=== PATIENT | male | born 1965 | race Caucasian/White ===

== ENCOUNTER 2016-12-23 17:10 | Emergency (ER) | payer OTHER ==
[~2016-12-23] VITALS: Ht 175.3 cm; Wt 137.0 kg
--- OUTSIDE RECORDS SUMMARY | 2016-12-23 17:18 | XMS REPORT ---
Author Author FRANCESCA GONZALES Organization [employer] Address Unknown Phone Unavailable Care Team Providers Care Casting And Curing Operator Name Role Phone FRANCESCA GONZALES CP Unavailable Allergies, Adverse Reactions, Alerts Substance Reaction Event Type N.K.D.A. Info Not Available Non Drug Allergy Problems Problem Type Condition Code Onset Dates Condition Status Assessment Dental caries K02.9 Active Assessment Encounter for dental examination Z01.20 Active Medications Medication Code System Code Instructions Start Date End Date Status Dosage Lisinopril [facility] [address]-77 20 MG Orally Once a day 1 tablet Doxepin HCl [facility] [address]-38 not defined Triamterene-HCTZ [facility] [address]-92 75-50 MG Orally Once a day 1 tablet in the morning Aspir-[address] [facility] [address]-11 81 MG Orally Once a day 1 tablet B-[address] [facility] [address] not defined Delilah-C [facility] [address] not defined Fish Oil [facility] [address]-65 not defined Metformin HCl [facility] [address]-76 not defined Oxycodone HCl [facility] [address]-80 not defined Procedures Procedure Coding System Code Date INTRAORL-PERIAPICAL 1 FILM 17797 CPT-4 D0220 Mar 23, 2015 BITEWING - SINGLE FILM CPT-4 D0270 Mar 23, 2015 LTD ORAL EVALUATION - PROBLEM FOCUS CPT-4 D0140 Mar 23, 2015 EXTRAC ERUPTED TOOTH/EXPOSED ROOT CPT-4 D7140 Mar 23, 2015 Vital Signs Date/Time: Mar 23, 2015 Blood Pressure Diastolic 84 mmHg Blood Pressure Systolic 142 mmHg Results No Known Results Summary Purpose [employer] Submission
[2016-12-23] MEDS ORDERED: LISI-552 (18:23)
[2016-12-23] MEDS ORDERED: TRIA1TAB5 (18:23)
[2016-12-23] MEDS ORDERED: OXYC15TA79 (18:23)
[2016-12-23] MEDS ORDERED: ASPI-586 PO (18:23)
[2016-12-23] MEDS ORDERED: LINA5TAB (18:23)
[2016-12-23] MEDS ORDERED: DULA0.75 (18:25)
[2016-12-23] MEDS ORDERED: GLYB5TAB6 (18:25)
[2016-12-23] MEDS ORDERED: inSUlin (REGULAR) HUMAN 1 UNIT/0.01 ML (CHARGE PER UNIT) SC STA (18:53)
[2016-12-23] MEDS ORDERED: predniSONE 20 MG TAB PO ONE (19:00)
--- NOTE | 2016-12-23 19:02 | ED General ---
General Chief Complaint: General Problems/Pain Stated Complaint: IRREGULAR LAB RESULTS Nursing Triage Note: WAS TOLD TO COME TO ER FOR LOW PLT COUNT. Nursing Sepsis Screen: No Definite Risk Source of Information: Patient Exam Limitations: No Limitations History of Present Illness Time Seen by Provider: 18:00 Initial Comments Here with report of low platelet count. Apparently he had normal labs drawn this morning for . visit later this week. He is called by the nurse for the physician and they were very concerned because his platelets were abnormally low. They directed him for repeat blood test. This was done here and results noted. His platelet count was 9 but his other lab looked okay apparently his doctor's nurse called and then told him to come directly to the ER for further evaluation. Here he reports it is not in any significant pain. He does admit that he's had easy bruising over the last couple weeks. He states this started after he was taken off metformin and started on new injectable diabetes agents that are not insulin. Denies any recent fever or chills. Denies other injury or concerns. Does report taking aspirin. Denies blood in his urine or stool. Denies any vomiting of blood. Notes little red spots on his legs recently. Timing/Duration: 12-24 Hours Severity: Mild Associated Systoms: No Chest Pain, No Cough, No Fever/Chills, No Headaches, No Nausea/Vomiting, No Shortness of Air, No Weakness Allergies and Home Medications Allergies Coded Allergies: No Known Drug Allergies (Unverified , 12/23/16) Home Medications Aspirin 81 Mg Tablet.dr, 81 MG PO, (Reported) Dulaglutide 0.75 Mg/0.5 Ml Pen.injctr, (Reported) Glyburide 5 Mg Tablet, (Reported) Insulin Regular, Human 500 Unit/1 Ml Insuln.pen, 10 UNIT SQ UD, #1 Ref 2 Sliding-scale insulin per chart before meals and at bedtime Prescribed by: DEBBI JHAVERI on 12/23/161905 Linagliptin 5 Mg Tablet, (Reported) Lisinopril 20 Mg Tablet, (Reported) Oxycodone HCl 15 Mg Tablet, (Reported) Prednisone 20 Mg Tab, 80 MG PO DAILY, #80 Ref 0 Prescribed by: DEBBI JHAVERI on 12/23/161905 Triamterene/Hydrochlorothiazid 1 Each Tablet, (Reported) Constitutional: see HPI, No chills, No fever EENTM: no symptoms reported Respiratory: no symptoms reported Cardiovascular: no symptoms reported Gastrointestinal: No abdominal pain, No diarrhea, No hematemesis, No melena, No nausea, No vomiting Genitourinary: no symptoms reported Musculoskeletal: no symptoms reported Skin: no symptoms reported Psychiatric/Neurological: No Symptoms Reported All Other Systems Reviewed Negative Unless Noted: Yes Past Xnxtuyv-Bhnysv-Bijmkb Hx Patient Social History Alcohol Use: Occasionally Uses Recreational Drug Use: No Smoking Status: Never a Smoker Recent Foreign Travel: No Contact w/Someone Who Travel: No Recent Infectious Disease Expo: No Surgeries History of Surgeries: No Respiratory History of Respiratory Disorde: Yes Respiratory Disorders: Sleep Apnea Cardiovascular History of Cardiac Disorders: Yes Cardiac Disorders: Hypertension Genitourinary History of Genitourinary Disor: No Gastrointestinal History of Gastrointestinal Di: No Musculoskeletal History of Musculoskeletal Dis: Yes Musculoskeletal Disorders: Chronic Back Pain Endocrine History of Endocrine Disorders: Yes Endocrine Disorders: Diabetes, Non-Insulin dep Psychosocial History of Psychiatric Problem: No Reviewed Nursing Assessment Reviewed/Agree w Nursing PMH: Yes Family Medical History Significant Family History: No Pertinent Family Hx Physical Exam Vital Signs Vital Sign - Last 12Hours 12/23/16 18:09 Temp 97.8 Pulse 74 Resp 18 B/P (MAP) 194/104 Pulse Ox 98 Capillary Refill : Less Than 3 Seconds General Appearance: No Apparent Distress, WD/WN HEENT: PERRL/EOMI, TMs Normal, Normal ENT Inspection, Pharynx Normal Neck: Non Tender, Supple Respiratory: Lungs Clear, Normal Breath Sounds Cardiovascular: Regular Rate, Rhythm, No Murmur Gastrointestinal: Non Tender, Soft Back: Normal Inspection, No CVA Tenderness, No Vertebral Tenderness Extremity: Normal Range of Motion, Non Tender Neurologic/Psychiatric: Alert, Oriented x3 Skin: Warm/Dry, Petechia (noted to bilateral lower extremities between the knee and ankle) Progress/Results/Core Measures Results/Orders My Orders Orders - DEBBI JHAVERI MD Prednisone Tablet (Deltasone Tablet) (12/23/16 19:00) Insulin (Regular) Human (Humulin R (Per (12/23/16 18:53) Vital Signs/I&O Vital Sign - Last 12Hours 12/23/16 18:09 Temp 97.8 Pulse 74 Resp 18 B/P (MAP) 194/104 Pulse Ox 98 Blood Pressure Mean: 134 Point of Care Testing Finger Stick Blood Glucose: 369 Blood Glucose Action Taken: DR AND RN NOTIFIED Progress Note : Progress Note Seen and evaluated. I did review the labs here. Noted platelet count to be 9 but otherwise fairly normal CBC. I did page Dr. Clements at 1829 spoke with him at 1830. He believes this is likely related to ITP. On reexam I did find the petechiae to the lower extremities. Dr. Clements did discuss the slide of the blood from lab with a labor mediator. He did call me back at 183. Definitely appears to be ITP. Patient will need high-dose steroids. He is diabetic and or car sliding dose insulin. He does not currently take insulin. We will order insulin 12 units subcutaneous for blood sugar of 369 based on sliding scale be. This is what he will continue with outpatient. I have asked the nursing office machine service supervisor to do insulin teaching with the patient and also discussion of the sliding scale which he will do. Prednisone 80 mg by mouth ordered. Patient will need to follow-up with his doctor on Sunday for repeat CBC and his doctor will need to contact Dr. Avila for further instructions as needed. This was discussed with the patient and family who verbalize understanding. Discharged home with return precautions. Patient verbalize understanding of instructions and agreement with plan. Departure Impression Impression: Primary Impression: Acute ITP Disposition: HOME, SELF-CARE Condition: Improved Departure-Patient Inst. Decision time for Depature: 18:57 Referrals: CAMILLE AVILA,LOCAL PHYSICIAN (PCP) Primary Care Physician Patient Instructions: Immune Thrombocytopenia (ITP) (DC) Add. Discharge Instructions: All discharge instructions reviewed with patient and/or family. Voiced understanding. You will need to have your blood redrawn on Sunday. Take medications as prescribed. You will need to do the insulin sliding scale dosing per chart be on the chart given to you. Check your blood sugars before each meal 3 times a day and before bedtime. Dose insulin according to the chart. You can continue your other medications. Your doctor can call Dr. Avila on Sunday for help with managing this disorder. You will be on prednisone dosing daily for some time which may exceed a month and you will need tapered dosing. It is important that he follow up with your doctor on Sunday and discuss all of this. Return for worse pain, fever, vomiting, weakness, breathing problems or other concerns as needed. You need to avoid sugared food and snacks. Drink plenty of fluids. When you take the prednisone in the morning, ensure that you are taking it after eating to help protect her stomach. Also stop taking any aspirin or ibuprofen-like products such as Motrin, Naprosyn or Aleve. Scripts Insulin Regular, Human (Humulin R U-500 Kwikpen) 500 Unit/1 Ml Insuln.pen 10 UNIT SQ UD, #1 EA 2 Refills Sliding-scale insulin per chart before meals and at bedtime Prov: DEBBI JHAVERI MD 12/23/16 Prednisone (Prednisone) 20 Mg Tab 80 MG PO DAILY, #80 TAB 0 Refills Prov: DEBBI JHAVERI MD 12/23/16 Copy Copies To 1: CAMILLE AVILA TIMOTHY D MD Dec 23, 2016 19:02
[2016-12-23] MEDS ORDERED: INSU500I SQ (19:06)
[2016-12-23] MEDS ORDERED: PRD20T PO (19:06)
[2016-12-23 19:32] VITALS: BP 127/105
== END 2016-12-23 19:31 | disposition home or self-care (01) ==
LOC: EDUNIT# 17:10 → ER 17:11
DX: D69.3 Immune thrombocytopenic purpura (principal); E11.9 Type 2 diabetes mellitus without complications; I10 Essential (primary) hypertension; G47.30 Sleep apnea, unspecified; Z79.4 Long term (current) use of insulin; Z79.82 Long term (current) use of aspirin
CPT/HCPCS: 82962; 96372; 99283

== ENCOUNTER → 2016-12-23 | Outpatient (CLI) | payer OTHER ==
[~2016-12-23] MED LIST: ASPI-586 PO; DULA0.75; GLYB5TAB6; INSU500I SQ; LINA5TAB; LISI-552; OXYC15TA79; PRD20T PO; TRIA1TAB5
[2016-12-23 16:55] LABS: BASOPHILS % (AUTO) 1 % (0-10); EOSINOPHILS # (AUTO) 0.1 10^3/uL (0.0-0.3); EOSINOPHILS % (AUTO) 2 % (0-10); LYMPHOCYTES # (AUTO) 2.9 X 10^3 (1.0-4.0); LYMPHOCYTES % (AUTO) 38 % (12-44); MEAN CORPUSCULAR HEMOGLOBIN 29 PG (25-34); MEAN CORPUSCULAR HGB CONC 35 G/DL (32-36); MEAN CORPUSCULAR VOLUME 82 FL (80-99); MEAN PLATELET VOLUME 12.1 FL (7.4-10.4); MONOCYTES # (AUTO) 0.6 X 10^3 (0.0-1.0); MONOCYTES % (AUTO) 8 % (0-12); NEUTROPHILS % (AUTO) 52 % (42-75); RED BLOOD COUNT 4.53 10^6/uL (4.35-5.85); RED CELL DISTRIBUTION WIDTH 12.6 % (10.0-14.5); RETICULOCYTE % 1.49 % (0.50-2.40); WHITE BLOOD COUNT 7.7 10^3/uL (4.3-11.0)
[2016-12-23 17:00] LABS: PATH WILL NEED TO REVIEW SMEAR PATH TO REVIEW; PLATELET COUNT 9 10^3/uL (130-400)
[2016-12-23 17:46] LABS: BAND NEUTROPHILS 0 %; BASOPHILS % (MANUAL) 0 %; EOSINOPHILS % (MANUAL) 0 %; LYMPHOCYTES % (MANUAL) 42 %; NEUTROPHILS % (MANUAL) 53 %
== END ==
LOC: LAB 16:33
DX: D69.6 Thrombocytopenia, unspecified (principal)
CPT/HCPCS: 36415; 85007; 85027; 85045

== ENCOUNTER 2022-03-20 08:58 | Emergency (ER) | payer OTHER ==
[~2022-03-20] VITALS: Ht 175 cm; Wt 132.0 kg
[~2022-03-20 08:58] MED LIST changes: +GLBR5T; -GLYB5TAB6; -LISI-552; +LISI20TA26; +OXYC-525; -OXYC15TA79
--- NOTE | 2022-03-20 09:27 | ED Back Pain ---
General Chief Complaint: Back Problems Stated Complaint: LWR BACK/RT LEG PAIN Source of Information: Patient History of Present Illness Date Seen by Provider: Mar 20, 2022 Time Seen by Provider: 09:05 Initial Comments Patient is a 56-year-old male with history of chronic back pain with radiculopathy who presents with acute exacerbation of sciatica on his right. Patient reports feeling pain starting 3 days ago after exiting his truck. The pain radiates from his low lumbar region into his right hip down to his right knee. Patient denies motor weakness loss of sensation or saddle anesthesia. Pain is moderate to severe worse with movement and is partially relieved with rest. He has not had fever, unexplained weight loss, sweats or recent trauma. Patient was evaluated by his PCP 2 days ago and was given an Norflex and Toradol injection. He was instructed to go to the ED at that time to obtain an MRI. Patient has not had any worsening of his symptoms since they began. His history of biv-umpofks-qziwghyfs diabetes and ITP. Location: Lumbar Spine, Paraspinous Muscles Timing/Duration: Other Severity: Severe Pain/Injury Location: Other Radiation: Other Method of Injury: Other Modifying Factors: Improves With Other Associated Symptoms: other Allergies and Home Medications Allergies Coded Allergies: No Known Drug Allergies (Unverified , 12/23/16) Patient Home Medication List Home Medication List Reviewed: Yes Aspirin (Aspir 81) 81 Mg Tablet.dr, 81 MG PO, (Reported) Entered as Reported by: CLARKE OCAMPO on 12/23/161822 Dulaglutide (Trulicity) 0.75 Mg/0.5 Ml Pen.injctr, (Reported) Entered as Reported by: CLARKE OCAMPO on 12/23/161824 Glyburide (Glyburide) 5 Mg Tablet, (Reported) Entered as Reported by: CLARKE OCAMPO on 12/23/161824 Insulin Regular, Human (Humulin R U-500 Kwikpen) 500 Unit/1 Ml Insuln.pen, 10 UNIT SQ UD Prescribed by: DEBBI JHAVERI on 12/23/161905 Linagliptin (Tradjenta) 5 Mg Tablet, (Reported) Entered as Reported by: CLARKE OCAMPO on 12/23/161822 Lisinopril (Lisinopril) 20 Mg Tablet, (Reported) Entered as Reported by: CLARKE OCAMPO on 12/23/161822 Oxycodone HCl (Oxycodone HCl) 15 Mg Tablet, (Reported) Entered as Reported by: CLARKE OCAMPO on 12/23/161822 Prednisone (Prednisone) 20 Mg Tab, 80 MG PO DAILY Prescribed by: DEBBI JHAVERI on 12/23/161905 Triamterene/Hydrochlorothiazid (Triamterene-Hctz 75-50 mg Tab) 1 Each Tablet, (Reported) Entered as Reported by: CLARKE OCAMPO on 12/23/161822 Review of Systems Constitutional: see HPI EENTM: see HPI Respiratory: see HPI Cardiovascular: see HPI Gastrointestinal: see HPI Genitourinary: see HPI Musculoskeletal: see HPI Skin: see HPI Psychiatric/Neurological: See HPI All Other Systems Reviewed Negative Unless Noted: No Past Oburesi-Ofmjii-Aogxfr Hx Patient Social History Tobacco Use?: No Past Medical History Surgeries: No Respiratory: Yes Sleep Apnea Cardiac: Yes Hypertension Genitourinary: No Gastrointestinal: No Musculoskeletal: Yes Chronic Back Pain Endocrine: Yes Diabetes, Non-Insulin dep Psychosocial: No Family Medical History No Pertinent Family Hx Physical Exam Vital Signs Capillary Refill : Height, Weight, BMI Height: 5'9.00" Weight: 302lbs. oz. 136.437362vh; BMI Method:Stated General Appearance: Moderate Distress (Secondary to pain), Obese HEENT: PERRL/EOMI, Pharynx Normal Neck: Full Range of Motion, Normal Inspection Cardiovascular: Regular Rate, Rhythm, No Edema Respiratory: Normal Breath Sounds Gastrointestinal: Other Back: Decreased Range of Motion, Muscle Spasm Neurologic/Psychiatric: No Motor/Sensory Deficits, Other (Positive SLR on the right) Departure Communication (Admissions) Patient with exacerbation of chronic back pain with radiculopathy without neurologic compromise. Pain medication provided in the emergency department. Recommendations for supportive care watchful waiting and PCP follow-up for further management. Return precautions reviewed. Patient verbalizes understanding and agreement with discharge instructions prior to departure peer Impression Primary Impression: Sciatic neuralgia Disposition: 01 HOME, SELF-CARE Condition: Stable Departure-Patient Inst. Decision time for Depature: 09:28 Referrals: AKUA SCHAFFER (PCP) Primary Care Physician [facility] (Family) Primary Care Physician Patient Instructions: Sciatica Add. Discharge Instructions: You were evaluated in the emergency department for right-sided back pain rating radiating to your right leg. Your symptoms are consistent with sciatica from a pinched nerve. Please take newly prescribed medications as directed, avoid strenuous physical activity and heavy lifting and follow-up with your PCP in 2 to 3 days for reevaluation. In the meantime if you develop new or worsening symptoms, return to the emergency department. All discharge instructions reviewed with patient and/or family. Voiced understanding. Scripts Prednisone (Prednisone) 50 Mg Tab 50 MG PO DAILY, #2 TAB Prov: GARCÍA EDWARDS DO 03/20/22 Oxycodone HCl/Acetaminophen (Percocet 5-325 mg Tablet) 1 Each Tablet 2 TAB PO Q4H for PAIN-MODERATE MDD 6 TABS for 7 Days, #14 TAB Prov: GARCÍA EDWARDS DO 03/20/22 GARCÍA EDWARDS DO Mar 20, 2022 09:27
[2022-03-20] MEDS ORDERED: PRD50T PO (09:31)
[2022-03-20] MEDS ORDERED: OXYC1TAB87 PO (09:31)
[2022-03-20 09:35] VITALS: BP 137/73
[2022-03-20] MEDS ORDERED: oxyCODONE/APAP 5/325MG (PERCOCET 5) TABLET ONE (09:37)
[2022-03-20] MEDS ORDERED: oxyCODONE/APAP 5/325MG (PERCOCET 5) TABLET PO ONE (09:45)
[2022-03-20] MEDS ORDERED: predniSONE 20 MG TAB PO ONE (09:45)
== END 2022-03-20 09:50 | disposition home or self-care (01) ==
LOC: EDUNIT# 08:58 → ER FS 09:01
DX: M54.41 Lumbago with sciatica, right side (principal); G89.29 Other chronic pain; Z28.310 Unvaccinated for COVID-19
CPT/HCPCS: 99283